=== PATIENT | female | born 1975 | race Two or more races ===

== ENCOUNTER 2023-02-24 21:52 | Emergency (ER) | payer OTHER ==
[~2023-02-24] VITALS: Ht 160 cm; Wt 77.1 kg
[2023-02-24] MEDS ORDERED: COZAAR25 MG PO (22:33)
[2023-02-25] MEDS ORDERED: NORFLEX100MG PO (01:35)
== END 2023-02-25 01:51 | disposition home or self-care (01) ==
LOC: ER 21:52
DX: M54.2 Cervicalgia (principal); V43.52XA Car driver injured in collision with other type car in traffic accident, initial encounter; Y92.413 State road as the place of occurrence of the external cause; Y93.89 Activity, other specified

== ENCOUNTER 2025-02-26 17:09 | Emergency (ER) | payer OTHER ==
[~2025-02-26] VITALS: Ht 160 cm; Wt 67.6 kg
[~2025-02-26 17:09] MED LIST: COZAAR25 MG PO; NORFLEX100MG PO
[2025-02-26] MEDS ORDERED: ZESTRIL40 M1 PO (17:59)
[2025-02-27] MEDS ORDERED: CAMBIA50 MG (09:18)
[2025-02-27] MEDS ORDERED: CEFADROXIL500 MG (09:18)
== END 2025-02-26 19:39 | disposition home or self-care (01) ==
LOC: ER 17:20
DX: N60.89 Other benign mammary dysplasias of unspecified breast (principal); I10 Essential (primary) hypertension

== ENCOUNTER 2025-02-27 08:50 | Emergency (ER) | payer OTHER ==
[~2025-02-27] VITALS: Ht 160 cm; Wt 67.6 kg
[~2025-02-27 08:50] MED LIST changes: +ZESTRIL40 M1 PO
[2025-02-27] MEDS ORDERED: CEFADROXIL500 MG (09:18)
[2025-02-27] MEDS ORDERED: CAMBIA50 MG (09:18)
== END 2025-02-27 11:09 | disposition home or self-care (01) ==
LOC: ER 08:50
DX: N60.02 Solitary cyst of left breast (principal); N60.82 Other benign mammary dysplasias of left breast; N60.12 Diffuse cystic mastopathy of left breast; I10 Essential (primary) hypertension